=== PATIENT | male | born 1995 | race Caucasian/White ===

== ENCOUNTER 2023-04-19 19:32 | Emergency (ER) | payer OTHER, SELFPAY ==
[2023-04-19 21:00] LABS: #Basophils 0.1 thou/uL (0.0-0.2); #Eosinphils 0.2 thou/uL (0.0-0.7); #Monocytes 0.9 thou/uL (0.11-0.59); #Neutrophils 5.5 thou/uL (1.40-6.50); %Basophils 0.6 % (0.0-1.0); %Eosinophils 2.3 % (0.0-10.0); %Lymphocytes 28.6 % (21.0-51.0); %Monocytes 9.2 % (0.0-10.0); %Neutrophils 58.6 % (42.0-75.0); Mean Corpuscular HGB CONC 34.6 g/dL (32.0-36.0); Mean Corpuscular Hemoglobin 28.8 pg (27.0-31.0); Mean Corpuscular Volume 83.3 fl (78.0-98.0); Mean Platelet Volume 10.8 fL (7.4-10.4); Platelet Count 280 10x3/uL (130-400); Red Blood Cell (RBC) Count 5.21 mill/uL (4.70-6.10); White Blood Cell (WBC) Count 9.4 10x3/uL (4.8-10.8)
[2023-04-19] MEDS ORDERED: Ketorolac Tromethamine 30 MG/ML VIAL ONE (21:02)
[2023-04-19] MEDS ORDERED: Prochlorperazine 10 MG/2 ML VIAL ONE (21:18)
[2023-04-19 21:19] LABS: ALT (SGPT) 42 U/L (8-55); AST (SGOT) 21 U/L (5-34); Albumin 4.3 g/dL (3.5-5.0); Alkaline Phosphatase 72 U/L (40-110); Anion Gap 13 mmol/L (10-20); BUN (Urea Nitrogen) 12 mg/dL (8.9-20.6); Bilirubin, Total 0.5 mg/dL (0.2-1.2); Calc. Creatinine Clearance 0 mL/min (70-130); Calcium 9.5 mg/dL (7.8-10.44); Carbon Dioxide 27 mmol/L (22-29); Chloride 105 mmol/L (98-107); Estimated GFR 82; Globulin 3.3 g/dL (2.4-3.5); Glucose 99 mg/dL (70-105); Lipase 20 U/L (8-78); Potassium 4.3 mmol/L (3.5-5.1); Protein, Total 7.6 g/dL (6.0-8.3); Sodium 141 mmol/L (136-145)
== END 2023-04-19 22:12 | disposition home or self-care (01) ==
LOC: ERS 19:32
DX: R51.9 Headache, unspecified (principal); R11.2 Nausea with vomiting, unspecified; I10 Essential (primary) hypertension; F17.200 Nicotine dependence, unspecified, uncomplicated
CPT/HCPCS: 36415; 70450; 80053; 83690; 85025; 96365; 96375; J0780; J1885